=== PATIENT | male | born 1970 | race Caucasian/White ===

== ENCOUNTER → 2022-08-12 14:43 | Outpatient (CLI) | payer OTHER, SELFPAY ==
--- NOTE | 2022-08-12 14:46 | DI.MRI.S_ITS ---
PROCEDURE: MR SHOULDER RT WO CON INDICATIONS: Impingement syndrome of right shoulder TECHNIQUE: Noncontrast oblique coronal T2 fast spin echo with fat saturation, oblique sagittal T1 spin echo and T2 fast spin echo with fat saturation, axial T1 spin echo and T2 fast spin echo with fat saturation through the shoulder. COMPARISON: None. FINDINGS: Image quality: Excellent. Rotator cuff: There is moderate supraspinatus and infraspinatus tendinosis. There is partial articular sided tearing of the posterior supraspinatus tendon at the critical zone. The bursal surface fibers also appear partially torn in this location. The tear measures approximately 7 mm in anterior-posterior dimension. Low-grade partial intrasubstance tearing is seen at the distal infraspinatus tendon insertion measuring 4 mm in anterior-posterior dimension The teres minor tendon is intact. There is moderate subscapularis tendinosis with low-grade intrasubstance tearing at the superior insertion. The rotator cuff musculature is normal in bulk. Bones and bursae: No acute trabecular bone injury or fracture. Chronic traction cystic changes are seen at the posterosuperior humeral head. Moderate degenerative changes are seen in the acromioclavicular joint with subchondral cystic changes and subchondral edema as well as marginal osteophyte formation. There is a small amount of subacromial/subdeltoid bursal fluid. A small glenohumeral effusion is present. Capsule and soft tissues: There is nondisplaced tearing of the superior to anterosuperior labrum superimposed on nearly circumferential labral degeneration and likely chronic tearing. The proximal biceps long head tendon is intact. There is normal fat signal in the rotator interval. The glenohumeral ligaments are intact. IMPRESSION: 1. High-grade partial tearing of the posterior supraspinatus tendon at the critical zone with both articular surface and bursal surface components. Some of the central intrasubstance fibers remain in continuity, although a focal full-thickness perforation is not excluded. Moderate supraspinatus tendinosis. 2. Moderate infraspinatus tendinosis with focal low-grade intrasubstance tearing at the distal footprint. 3. Low-grade partial intrasubstance tearing of the subscapularis tendon at the superior insertion superimposed on moderate tendinosis. 4. Chronic nearly circumferential nondisplaced labral tearing with suspected more acute component at the anterosuperior labrum. 5. Moderate acromioclavicular joint osteoarthrosis. 6. Small subacromial/subdeltoid bursal effusion or bursitis. Dictated by: Jesus Arias M.D. on 08/13/2022 at 8:27 Approved by: Jesus Arias M.D. on 08/13/2022 at 8:44
== END ==
DX: M75.111 Incomplete rotator cuff tear or rupture of right shoulder, not specified as traumatic (principal); M19.011 Primary osteoarthritis, right shoulder; M75.41 Impingement syndrome of right shoulder
CPT/HCPCS: 73221